=== PATIENT | female | born 1925 | race Caucasian/White ===

== ENCOUNTER → 2016-08-31 | Outpatient (CLI) | payer MEDICARE, BC ==
[~2016-08-31] MED LIST: ASPIRIN 32325 MG/TAB PO; ATENOLOL50 MG PO; CALTRATE-600 W600 MG PO; FOSAMAX 70MG TA70 MG PO; LISINOPRIL10 MG PO; PLAVIX 75MG TAB75 MG PO; SYNTHROID0.05 MG/TA PO; SYNTHROID0.075 MG/T PO; TENORMIN 5050 MG/TAB PO; VITAMIN C500 MG PO; VYTORIN; VYTORIN 10 MG-41 TAB PO; ZESTRIL 10MG10 MG PO
== END ==
LOC: COL.VAS 10:24
DX: I10 Essential (primary) hypertension (principal)